=== PATIENT | male | born 1935 | race African-American/Black ===

== ENCOUNTER 2021-10-01 09:10 | Emergency (ER) | payer OTHER ==
[~2021-10-01] VITALS: Ht 188 cm; Wt 100.0 kg
[~2021-10-01 09:10] MED LIST: HYDR12.529 PO; KEPP500 PO
[2021-10-01] MEDS ORDERED: ACETAMINOPHEN 325MG TABLET PO NR (12:00)
[2021-10-01] MEDS ORDERED: KETOROLAC 30MG/ML VIAL IM ONE (12:45)
[2021-10-01] MEDS ORDERED: OXYCODONE HCL/ACETAMINOPHEN 5/325MG TABLET PO ONE (14:30)
[2021-10-01 16:52] VITALS: BP 158/84
== END 2021-10-01 16:57 | disposition home or self-care (01) ==
LOC: ER 09:10
DX: S42.294A Other nondisplaced fracture of upper end of right humerus, initial encounter for closed fracture (principal); I10 Essential (primary) hypertension; G40.909 Epilepsy, unspecified, not intractable, without status epilepticus; F03.90 Unspecified dementia, unspecified severity, without behavioral disturbance, psychotic disturbance, mood disturbance, and anxiety; Z98.890 Other specified postprocedural states; Z88.0 Allergy status to penicillin; W01.0XXA Fall on same level from slipping, tripping and stumbling without subsequent striking against object, initial encounter; Y93.89 Activity, other specified; Y92.018 Other place in single-family (private) house as the place of occurrence of the external cause
CPT/HCPCS: 71045; 73030; 73060; 73090; 73502; 96372; 99284; J1885

== ENCOUNTER 2021-10-03 13:49 | Emergency (ER) | payer OTHER ==
[~2021-10-03] VITALS: Ht 188 cm; Wt 84.0 kg
[2021-10-03] MEDS ORDERED: SODIUM CHLORIDE 0.9% 1,000 ML IV ONE (14:30)
[2021-10-03 14:47] LABS: HEMATOCRIT. 27.1 % (42.0-52.0); HEMOGLOBIN. 9.3 g/dL (14.0-18.0); MEAN CORPUSCULAR VOLUME 87.7 fL (80.0-94.0); MEAN PLATELET VOLUME 7.2 fl (7.4-10.4); PLATELET 104 x1000/uL (130-400); RED BLOOD CELL COUNT 3.09 mill/uL (4.7-6.1)
[2021-10-03 14:53] LABS: CHLORIDE 106 mEq/L (98-107)
[2021-10-03 14:58] LABS: ETHANOL BLOOD < 10 mg/dL
[2021-10-03 15:03] LABS: BETA HYDROXYBUTYRATE < 0.1 mMol/L (0.0-0.3)
[2021-10-03 15:36] LABS: PLATELET ESTIMATE DECREASED
[2021-10-03] MEDS ORDERED: ACETAMINOPHEN 325MG TABLET PO ONE (17:30)
[2021-10-03] MEDS ORDERED: MORPHINE SULFATE 2 MG/ML CPJ (NOT FOR IM USE) IV ONE (19:00)
[2021-10-03] MEDS ORDERED: HALOPERIDOL LACTATE 5MG/ML VIAL IM ONE ×2 (19:15→19:45)
[2021-10-03 21:25] VITALS: BP 160/70
== END 2021-10-03 22:21 | disposition short-term general hospital (02) ==
LOC: ER 13:56
DX: G93.40 Encephalopathy, unspecified (principal); S42.292A Other displaced fracture of upper end of left humerus, initial encounter for closed fracture; E86.0 Dehydration; F03.90 Unspecified dementia, unspecified severity, without behavioral disturbance, psychotic disturbance, mood disturbance, and anxiety; I10 Essential (primary) hypertension; R56.9 Unspecified convulsions; X58.XXXA Exposure to other specified factors, initial encounter; Y93.9 Activity, unspecified; Y92.9 Unspecified place or not applicable; Z88.0 Allergy status to penicillin
CPT/HCPCS: 36415; 70450; 80053; 80320; 82010; 82962; 84484; 85025; 93005; 96360; 96372; 99285; J1630; J7030; G0480

== ENCOUNTER 2022-10-30 17:07 | Emergency (ER) | payer OTHER ==
[~2022-10-30] VITALS: Ht 182.9 cm; Wt 100.0 kg
[2022-10-30 18:04] LABS: BASOPHILS % 0.3 % (0.0-2.0); EOSINOPHILS % 0.3 % (0.0-5.0); HEMATOCRIT. 33.8 % (42.0-52.0); HEMOGLOBIN. 11.4 g/dL (14.0-18.0); LYMPHOCYTES % 14.4 % (20.0-50.0); MEAN CORPUSCULAR HEMOGLOBIN 29.7 pg (28.0-32.0); MEAN PLATELET VOLUME 8.5 fl (7.4-10.4); MONOCYTES % 6.8 % (2.0-8.0); NEUTROPHILS % 78.2 % (40.0-76.0); PLATELET 128 x1000/uL (130-400); RED BLOOD CELL COUNT 3.85 mill/uL (4.7-6.1); RED CELL DISTRIBUTION WIDTH 15.5 % (11.6-14.6)
[2022-10-30 18:13] LABS: INR 1.1; PROTHROMBIN TIME 11.8 sec (9.6-11.0)
[2022-10-30 18:21] LABS: CHLORIDE 106 mEq/L (98-107)
[2022-10-30 18:30] LABS: ETHANOL BLOOD < 10 mg/dL
[2022-10-30] MEDS ORDERED: HALOPERIDOL LACTATE 5MG/ML VIAL IM ONE (20:30)
[2022-10-30] MEDS ORDERED: DIPHENHYDRAMINE 50MG/ML VIAL IV ONE (20:45)
[2022-10-30] MEDS ORDERED: LORAZEPAM 2MG/ML CPJ IV ONE (20:45)
[2022-10-30 20:58] VITALS: BP 148/49
[2022-11-05] MEDS ORDERED: HYDR-3735 PO (15:11)
[2022-11-05] MEDS ORDERED: LACO100T2 PO (15:11)
[2022-11-05] MEDS ORDERED: RISP05 PO (15:11)
== END 2022-10-30 21:20 | disposition short-term general hospital (02) ==
LOC: ER 17:07 → CANBEDREQ 10-31 19:54
DX: R41.82 Altered mental status, unspecified (principal); R29.6 Repeated falls; I10 Essential (primary) hypertension; E11.9 Type 2 diabetes mellitus without complications; Z88.0 Allergy status to penicillin
CPT/HCPCS: 36415; 70450; 71045; 80053; 80320; 82962; 83880; 84443; 84484; 85025; 85610; 93005; 96372; 96374; 99285; J1200; J1630; G0480